=== PATIENT | female | born 1975 | race Hispanic/Latino ===

== ENCOUNTER 2017-05-08 13:11 | Outpatient (CLI) | payer OTHER ==
--- NOTE | 2017-05-08 14:21 | RAD ---
SCOLIOSIS EXAM: Date: 05/08/17 HISTORY: Scoliosis. FINDINGS: There are 12 thoracic-type vertebrae and 5 lumbar-type vertebrae. Pedicles are intact. Measured from T9 to L2, there is 5 degree leftward convex curvature. Measured from L2 to L5, there is 5 degree righ tward convex curvature. IMPRESSION: Mild curvature of the thoracolumbar spine without scoliosis diagnosis. POS: YAIR
--- NOTE | 2017-05-08 14:21 | RAD ---
LUMBAR SPINE TWO VIEWS: History: Low back pain. FINDINGS: There are five lumbar type vertebrae. Pedicles are intact. Mild leftward convex curvature is apparent on the frontal view. Vertebral body heights and AP alignment are maintained. No acute fracture or di slocation. IMPRESSION: No acute osseous abnormalities are demonstrated. POS: YAIR
== END 2017-05-08 13:12 | disposition home or self-care (01) ==
LOC: SCSRAD 13:11
PROVIDERS: ATTEND Family Medicine
DX: M54.5 Low back pain (principal); M41.9 Scoliosis, unspecified
CPT/HCPCS: 72081; 72100